=== PATIENT | female | born 1985 | race Caucasian/White ===

== ENCOUNTER 2019-03-06 10:15 | Inpatient (IN) ==
[2019-03-06] MEDS ORDERED: Ringers Solution, Lactated 1,000 ML IVC ONE (10:20)
[2019-03-06] MEDS ORDERED: Metoclopramide 10 MG/2 ML VIAL IVP ONE (10:20)
[2019-03-06] MEDS ORDERED: Oxytocin 20 units/ LR 1000 mL 20 UNIT/1,000 ML BAG IVC ONE (10:20)
[2019-03-06] MEDS ORDERED: Famotidine 20 MG/2 ML VIAL IVP ONE (10:20)
[2019-03-06] MEDS ORDERED: Naloxone 0.4 MG/ML INJ IVP PRN (10:23)
[2019-03-06] MEDS ORDERED: Ringers Solution, Lactated 1,000 ML IVC SCH (10:30)
[2019-03-06 11:11] LABS: Basophils % 0.4 %; Eosinophils % 0.5 %; Hematocrit 39.6 % (35.3-44.9); Hemoglobin 13.3 g/dL (11.5-15.4); Immature Granulocytes % 0.5 % (0-4); Lymphocytes % 13.5 %; Mean Corpuscular HGB Conc 33.6 g/dL (31.6-35.5); Mean Corpuscular Hemoglobin 28.5 pg (28.0-33.3); Mean Platelet Volume 12.3 fL (9.4-12.4); Monocytes # 0.5 K/mcL (0.0-1.3); Monocytes % 6.6 %; Neutrophils # 6.1 K/mcL (1.6-8.9); Platelet Count 201 K/mcL (140-400); Red Blood Count 4.66 M/mcL (3.82-4.97); Red Cell Distribution Width 14.3 % (11.5-14.5); Segmented Neutrophils % 78.5 %; White Blood Count 7.7 K/mcL (4.3-11.1)
[2019-03-06 11:17] LABS: Amphetamine Screen,Urine Negative ng/mL (Cutoff=1000); Barbiturate Screen,Urine Negative ng/mL (Cutoff=200); Benzodiazepines Screen,Urine Negative ng/mL (Cutoff=200); Cannabinoid Screen,Urine Negative ng/mL (Cutoff = 50); Cocaine Screen,Urine Negative ng/mL (Cutoff= 300); Opiate Screen,Urine Negative ng/mL (Cutoff=300); Phencyclidine Screen,Urine Negative ng/mL (Cutoff=25)
[2019-03-06] MEDS ORDERED: Ondansetron 4 MG/2 ML VIAL ONE (11:21)
[2019-03-06] MEDS ORDERED: EPHEDrine 50 MG/ML VIAL ONE (11:21)
[2019-03-06] MEDS ORDERED: *HR* FentaNYL (PF) 100 MCG/2 ML VIAL ONE (11:21)
[2019-03-06] MEDS ORDERED: *HR* Morphine Sulfate/PF 10 MG/10 ML AMPUL ONE (11:21)
[2019-03-06] MEDS ORDERED: *HR* Oxytocin 10 UNIT/ML VIAL IM ONE (11:22)
[2019-03-06] MEDS ORDERED: CeFAZolin 2,000 MG/50 ML BAG IVPB ONE (11:33)
[2019-03-06] MEDS ORDERED: Ringers Solution, Lactated 1,000 ML ONE (11:39)
[2019-03-06] MEDS ORDERED: *HR* HYDROmorphone (PF) 1 MG/ML SYRINGE IVP PRN (11:52)
[2019-03-06] MEDS ORDERED: Acetaminophen IV 1,000 MG/100 ML INFUS..BTL IVPB ONE (11:52)
[2019-03-06] MEDS ORDERED: Ondansetron 4 MG/2 ML VIAL IVP ONE (11:52)
[2019-03-06] MEDS ORDERED: *HR* OxyCODONE Immed Rel 5 MG TABLET PO PRN (11:52)
[2019-03-06] MEDS ORDERED: Oxytocin 20 units/ LR 1000 mL 20 UNIT/1,000 ML BAG IVC SCH (16:41)
[2019-03-06] MEDS ORDERED: Sennosides 8.6 MG TABLET PO PRN (16:41)
[2019-03-06] MEDS ORDERED: Metoclopramide 10 MG/2 ML VIAL IVP PRN (16:41)
[2019-03-06] MEDS ORDERED: Ondansetron 4 MG/2 ML VIAL IVP PRN (16:41)
[2019-03-06] MEDS ORDERED: Simethicone 80 MG TAB.CHEW PO PRN (16:41)
[2019-03-06] MEDS: Ibuprofen 600 MG TABLET PO PRN (19:56)
[2019-03-07] MEDS: Acetaminophen 325 MG TABLET PO PRN ×2 (00:20→06:46)
[2019-03-07] MEDS: Ibuprofen 600 MG TABLET PO PRN ×3 (03:14→16:46)
[2019-03-07 06:48] LABS: Basophils % 0.4 %; Eosinophils # 0.1 K/mcL (0.0-0.6); Eosinophils % 0.6 %; Hematocrit 30.3 % (35.3-44.9); Immature Granulocytes % 0.8 % (0-4); Lymphocytes # 1.2 K/mcL (0.6-4.6); Mean Corpuscular HGB Conc 33.3 g/dL (31.6-35.5); Mean Corpuscular Hemoglobin 28.6 pg (28.0-33.3); Mean Corpuscular Volume 85.8 fL (83.0-100.0); Mean Platelet Volume 12.2 fL (9.4-12.4); Monocytes # 0.5 K/mcL (0.0-1.3); Monocytes % 6.6 %; Neutrophils # 5.8 K/mcL (1.6-8.9); Platelet Count 180 K/mcL (140-400); Red Blood Count 3.53 M/mcL (3.82-4.97); Red Cell Distribution Width 14.6 % (11.5-14.5); Segmented Neutrophils % 75.6 %; White Blood Count 7.7 K/mcL (4.3-11.1)
[2019-03-07 06:50] LABS: Hemoglobin 10.1 g/dL (11.5-15.4)
[2019-03-07] MEDS: Prenatal Vit/FA 1 EACH TABLET PO SCH (10:25)
[2019-03-07] MEDS: *HR* OxyCODONE/APAP 5/325 TABLET PO PRN ×2 (14:56→21:13)
[2019-03-08] MEDS: Ibuprofen 600 MG TABLET PO PRN ×2 (02:03→09:09)
[2019-03-08 08:07] VITALS: BP 123/83
[2019-03-08] MEDS: Prenatal Vit/FA 1 EACH TABLET PO SCH (09:06)
== END 2019-03-08 13:29 | disposition home or self-care (01) | DRG 787 ==
LOC: 1NENULAB 10:15 → 1NENUOBS 16:18
PROVIDERS: ADMIT Obstetrics & Gynecology; ATTEND Obstetrics & Gynecology